=== PATIENT | female | born 1985 ===

== ENCOUNTER 2017-04-18 07:31 | Inpatient (IN) | payer OTHER ==
[2015-08-03 18:48] VITALS: BMI 35.6
[2017-04-18] MEDS ORDERED: cefOXitin IV 2 gm in Dextrose 2 GM/50 ML BAG IVPB ONE ×2 (07:34→07:57)
[2017-04-18] MEDS ORDERED: Lactated Ringer's 1,000 ML IV SCH (07:45)
[2017-04-18 07:50] LABS: BASO # 0.1 K/uL (0.0-0.2); BASO % 0.6 % (0.0-2.0); EOS # 0.1 K/uL (0.0-0.7); EOS % 0.5 % (0.0-4.0); HEMOGLOBIN 9.6 g/dL (11.0-16.0); LYMPH # 2.7 K/uL (1.0-4.3); LYMPH % 25.9 % (20.0-40.0); MEAN CELL VOLUME 71.3 fL (81.0-99.0); MEAN CORPUSCULAR HEMOGLOBIN 22.4 pg (27.0-31.0); MEAN CORPUSCULAR HGB CONC 31.4 g/dL (33.0-37.0); MEAN PLATELET VOLUME 9.8 fL (7.2-11.7); MONO # 0.7 K/uL (0.0-0.8); MONO % 6.2 % (0.0-10.0); NEUT % 66.8 % (50.0-75.0); NRBC % 0.1 % (0.0-2.0); RBC 4.28 Mil/uL (3.80-5.20); RED CELL DISTRIBUTION WIDTH 20.5 % (11.5-14.5); WHITE BLOOD COUNT 10.5 K/uL (4.8-10.8)
[2017-04-18] MEDS ORDERED: Sodium Citrate/Citric Acid 15 ml Sol ONE (07:57)
[2017-04-18] MEDS ORDERED: Oxytocin 20 units in LR 2,000 ML IV ONE (07:58)
[2017-04-18] MEDS: Sodium Citrate/Citric Acid 15 ml Sol PO ONE ×2 (07:59→08:00)
[2017-04-18 08:07] LABS: ALBUMIN 3.4 g/dL (3.5-5.0); ALT/SGPT 24 U/L (9-52); AST/SGOT 26 U/L (14-36); BLOOD UREA NITROGEN 13 mg/dL (7-17); CALCIUM 8.8 mg/dl (8.6-10.4); GFR AFRICAN-AMERICAN > 60; GFR NON-AFRICAN AMERICAN > 60
[2017-04-18 08:11] LABS: ALB/GLOB RATIO 0.9 (1.0-2.1)
[2017-04-18 08:21] LABS: SQUAMOUS EPITHIAL 15 /hpf (0-5); URINE BACTERIA OCC (<OCC); URINE BILIRUBIN NEGATIVE (NEGATIVE); URINE BLOOD NEGATIVE (NEGATIVE); URINE CLARITY Hazy (Clear); URINE COLOR Yellow (YELLOW); URINE GLUCOSE (UA) NORMAL (Normal); URINE LEUKOCYTE ESTERASE 3+ Leu/uL (Negative); URINE NITRATE NEGATIVE (NEGATIVE); URINE PROTEIN NEGATIVE (NEGATIVE); URINE UROBILINOGEN NORMAL mg/dL (0.2-1.0)
[2017-04-18] MEDS ORDERED: Morphine 1 mg/ml preservative-free Inj(Duramorph) ONE (08:27)
[2017-04-18] MEDS ORDERED: ePHEDrine 50 mg/ml Inj ONE (08:27)
[2017-04-18] MEDS ORDERED: Oxytocin 10 Units/ml Inj ONE (08:39)
--- NOTE | 2017-04-18 09:10 | OBPN ---
Datetime: 04/18/2017 07:44 Vital Signs Provider: Reviewed; Within Normal Limits
[2017-04-18] MEDS ORDERED: Oxycodone/Acetaminophen 5/325 mg Tab PO PRN (10:11)
[2017-04-18] MEDS ORDERED: cefOXitin IV 2 gm in Dextrose 2 GM/50 ML BAG IVPB SCH ×2 (11:30→20:00)
[2017-04-18] MEDS: Simethicone 80 mg Chewtab PO SCH ×2 (17:53→23:24)
[2017-04-18] MEDS: cefOXitin 2 GM in Sodium Chloride 0.9% 100 ML IVPB SCH (20:23)
[2017-04-19] MEDS: cefOXitin 2 GM in Sodium Chloride 0.9% 100 ML IVPB SCH (04:57)
--- NOTE | 2017-04-19 06:59 | OP ---
PROCEDURE DATE: 04/18/2017 PREOPERATIVE DIAGNOSES: , intrauterine term; previous section; in labor. POSTOPERATIVE DIAGNOSES: , intrauterine term; previous section; in labor. PROCEDURE PERFORMED: Repeat low transverse section. TYPE OF ANESTHESIA: Spinal. ANESTHESIOLOGIST: Dr. Sung. SURGEON: Machelle Lloyd MD. ASSISTANTS: Dr. Smith and , medical office coordinator. OPERATIVE FINDINGS: The uterus was enlarged to term _size_, station -3 Both fallopian tubes and ovaries are grossly normal. The baby was at LOT position. OPERATIVE TECHNIQUE: The patient was prepped and draped in the usual sterile manner under spinal anesthesia. A Pfannenstiel skin incision was made and the keloids were excised from the previous surgical scar. Incision was carried down to the subcutaneous layer. Fascia was cut in the usual manner. Muscle splitting was performed. Peritoneum was picked up and opened thereby exposing the abdominal contents. The lower segment of uterus was identified and a bladder flap was made. A low transverse section was performed delivering a live baby girl with score of 9 and 9 from an LOT position. Cord blood was obtained and the placenta was thereby removed manually. The uterus was lifted out from the pelvic cavity and was placed on top of the abdomen and hemostasis was obtained by using 4 T - CLAMPS THE Lower uterine segment of uterus was sutured in 2 layers by using a 0 chromic catgut sutures. The first layer was a continuous interlocking suture, the second layer was a continuous imbricating layer for hemostatic purpose. After establishing hemostasis, the bladder flap was re-sutured by using a _2-O chromic catgut sutures using continuous sutures. After establishing hemostasis, the abdominal cavity was irrigated with Ringer's lactate solution and the uterus was put back inside the pelvic cavity. After lap and sponge counts were announced to be correct, the abdominal cavity was closed in the following manner. Peritoneum was closed by using a 0 chromic catgut using continuous sutures and the muscles were re-approximated by using 0 chromic catgut using interrupted sutures and the fascial layer was closed by using 0 VICRYL SUTURES WITH continuous stitches and interrupted stitch applied _IN BETWEEN sutures and the subcutaneous layer was sutured closed by using 2-0 plain catgut suture using continuous sutures and the skin was approximated by the use of a Monocryl 4-0 subcuticular stitches. Patient was transferred to recovery room in stable condition. Estimated blood loss around 300 mL and patient was on continuous compression thromboelastic stockings while in the OR as well as in the recovery room. The urine was noted to be clear of approximately 200 mL draining tano-colored through the Dill catheter. Machelle Lloyd MD MTDD
[2017-04-19 08:26] LABS: BASO % 0.3 % (0.0-2.0); LYMPH # 1.9 K/uL (1.0-4.3); LYMPH % 15.3 % (20.0-40.0); MEAN CORPUSCULAR HEMOGLOBIN 22.2 pg (27.0-31.0); MEAN CORPUSCULAR HGB CONC 31.3 g/dL (33.0-37.0); MEAN PLATELET VOLUME 9.4 fL (7.2-11.7); MONO # 0.5 K/uL (0.0-0.8); MONO % 4.1 % (0.0-10.0); NEUT % 80.3 % (50.0-75.0); NRBC % 0.1 % (0.0-2.0); RBC 3.34 Mil/uL (3.80-5.20); RED CELL DISTRIBUTION WIDTH 20.2 % (11.5-14.5); WHITE BLOOD COUNT 12.4 K/uL (4.8-10.8)
[2017-04-19 08:40] LABS: HEMOGLOBIN 7.4 g/dL (11.0-16.0)
[2017-04-19] MEDS ORDERED: Bisacodyl 5mg EC Tab PO ONE (10:12)
[2017-04-19] MEDS: Multiple Vitamins Tab PO SCH (11:05)
[2017-04-19] MEDS: Simethicone 80 mg Chewtab PO SCH ×4 (11:06→21:36)
[2017-04-19] MEDS: Oxycodone/Acetaminophen 5/325 mg Tab PO PRN ×2 (15:22→23:16)
--- NOTE | 2017-04-19 21:37 | OBPPN ---
Datetime: 04/19/2017 21:22 PP Pain Prov: Within normal limits PP Breasts Prov: Normal PP Heart Prov: Normal PP Lungs Prov: Normal PP Abdomen/Uterus Prov: Normal PP Lochia Prov: Normal PP Vulva/Perineum Prov: Normal PP CVA Tenderness Prov: Normal PP Extremities Prov: Normal PP C/S Incision Prov: Normal PP Progress Prov: Normal PP Impression Prov: Normal progression PP Plan Prov: Continue present management PP Progress Note Prov: 1ST POSTOP DAY : AFEBRILE, AMBULATORY, BREASTS ARE SOFT, LACTATING, ABDOMEN IS SOFT, STERILE STRIPS IN PLACE, WOUND WELL COAPTATED, EXTREMITIES NO EDEMA, NO TENDERNESS, LOCHIA MINIMAL, VOIDED FREELY, MOVED HER BOWELS TODAY. Vital Signs Provider PP: Within Normal Limits Datetime: 04/19/2017 07:01 PP Nausea Prov: Denies PP Flatus Prov: Yes PP BM Prov: No PP Comments Phys Exam Prov: Abdomen: Soft, non-tender, + bowel sounds, fundus is firm and slightly b elow the umbilicus. Dressing is clean, dry and intact, abdominal binder in place
[2017-04-20] MEDS: Oxycodone/Acetaminophen 5/325 mg Tab PO PRN ×4 (06:06→22:11)
[2017-04-20] MEDS: Multiple Vitamins Tab PO SCH (09:08)
[2017-04-20] MEDS: Simethicone 80 mg Chewtab PO SCH ×4 (09:09→21:21)
[2017-04-20 16:37] VITALS: O2SAT 98
--- NOTE | 2017-04-20 22:00 | OBPPN ---
Datetime: 04/20/2017 21:45 PP Pain Prov: Within normal limits PP Nausea Prov: Denies PP Flatus Prov: Yes PP Breasts Prov: Normal PP Heart Prov: Normal PP Lungs Prov: Normal PP Abdomen/Uterus Prov: Normal PP Lochia Prov: Normal PP Vulva/Perineum Prov: Normal PP CVA Tenderness Prov: Normal PP Extremities Prov: Normal PP C/S Incision Prov: Normal PP Progress Prov: Normal PP Impression Prov: Normal progression PP Progress Note Prov: 2ND POSTOP DAY : AFEBRILE , AMBULATORY, BREASTS ARE SOFT, ABDOMEN IS SOFT, WOUND WELL COAPTATED, STERILE STRIPS IN PLACE. EXTREMITIES NO EDEMA, NO TENDERNESS ,.LOCHIA MINIMAL.. ON ORAL HEMATINICS FEOSOL 325 MG TID , KEFLEX 500 MG QID PO. DISCHARGED HOME IN AM WITH POST OP INS TRUCTION AND PRESCRIPTIONS. TO THE OFFICE FOR FOLLOW UP IN 2 WEEKS . IP PP Procedures: None Vital Signs Provider PP: Reviewed Datetime: 04/20/2017 07:26 PP BM Prov: Yes PP Comments Phys Exam Prov: Soft, non-tender, + BS, fundus is firm and below the umbilicus, incision is clean, dry and intact . Abdominal binder in place PP Plan Prov: Continue present management
[2017-04-21] MEDS: Oxycodone/Acetaminophen 5/325 mg Tab PO PRN (02:56)
[2017-04-21] MEDS: Simethicone 80 mg Chewtab PO SCH (10:35)
[2017-04-21 16:35] VITALS: BP 118/84; PULSE 100; RESP 18; TEMP 99.1
--- NOTE | 2017-04-24 08:13 | DS ---
DATE: 04/21/2017 ADMITTING DIAGNOSIS: , intrauterine term, vertex, delivered a baby girl on previous section. HISTORY OF PRESENT ILLNESS: Patient is a 31-year-old 2, para 1-0-0-1 admitted for elective section and patient's last menstrual period was 07/15/2016 and now expected date of confinement was 04/21/2017 and the age of gestation on admission was 39 weeks. OBSTETRICAL HISTORY: Menarche at age of 15 of 3 to 5 days duration, interval of 28 days. Her first was in 08/04/2015 at 40 weeks gestation, delivered by section, a baby boy with a weight of 7 pounds and 13 ounces at [place], [place]. PERSONAL AND SOCIAL HISTORY: NO HISTORY OF ALLERGIES. PAST MEDICAL HISTORY: section in 2015. FAMILY HISTORY: No history of tuberculosis, diabetes in the family. PHYSICAL EXAMINATION: On admission, VITAL SIGNS: Blood pressure 130/90, pulse rate of 80 beats per minute. She is a fairly developed, fairly nourished female, not in acute distress with mild labor pain. SKIN: With normal limits. HEAD: With normal limits. EARS: With normal limits. EYES: With normal limits. HEART: With normal limits. LUNGS: With normal limits. ABDOMEN: Was noted to be soft. size measured at 36 cm. heart was appreciated with a left lower quadrant as 140-160 beats per minute. Pulse was noted to be strong and regular, vertex presentation . EXTREMITIES: Showed no edema. No dystrophy. No tenderness. PELVIC: Showed cervix is soft and closed and pink and vertex presentation, station -3. was intact. Uterus was enlarged, . IMPRESSION ON ADMISSION: at term, previous section, second time in labor for a repeat section. Patient underwent a repeat low-transverse section under spinal anesthesia on 04/18/2017, delivered a live baby girl with Apgars score of 9 and 9 with decreased hemoglobin and hematocrit noted. Postoperatively, patient was placed on oral hematinics, Feosol 75 mg three times a day as well as oral antibiotics, Keflex 500 mg 4 times a day p.o. and Motrin 600 mg one tablet every 6 hours if needed for pain. Patient's postoperative course was uneventful and was discharged on 04/21/2017 and to be followed up in the office in 2 weeks postoperative day. She was given prescriptions for Keflex, antibiotics 500 mg 4 times a day for 7 days and Feosol 75 mg three times a day as well as prescription for pain Motrin 600 mg one tablet every 6 hours if needed for pain and with food. Patient was asymptomatic on discharge. Machelle Lloyd MD
== END 2017-04-21 12:00 | disposition home or self-care (01) | DRG 766 ==
LOC: C.4D 07:31 → C.5S 14:00 → C.4M 15:14
PROVIDERS: ADMIT Obstetrics & Gynecology; ATTEND Obstetrics & Gynecology
PROC: 10D00Z1 Extraction of Products of Conception, Low, Open Approach (ICD-10-PCS; principal; 2017-04-18)
DX: O34.211 Maternal care for low transverse scar from previous cesarean delivery (principal); Z37.0 Single live birth; Z3A.40 40 weeks gestation of pregnancy